=== PATIENT | female | born 1970 | race Caucasian/White ===

== ENCOUNTER → 2019-11-19 12:47 | Outpatient (CLI) | payer OTHER, SELFPAY ==
--- NOTE | ~2019-11-19 | MM_ITS ---
EXAMINATION: MM screening [facility] BI w aguila HISTORY: Screening TECHNIQUE: Craniocaudal and mediolateral oblique 3-D tomosynthesis images were obtained and synthetic 2-D images were generated. CAD analysis was submitted and interpreted. COMPARISON: Comparison to multiple prior studies sequentially, with oldest reviewed study dated 11/13. BREAST PARENCHYMAL COMPOSITION: Breast composed of scattered areas of fibroglandular density. FINDINGS: There is no evidence of suspicious mass, calcification, or architectural distortion to sugg est malignancy in either breast. There has been no suspicious interval change. IMPRESSION: 1. No mammographic evidence of malignancy. 2. Recommend routine screening mammography in one year. BI-RADS CATEGORY 1 - NEGATIVE Reviewed, dictated and finalized at location A.
== END ==
PROVIDERS: Visit Provider Nurse Practitioner
DX: Z12.31 Encounter for screening mammogram for malignant neoplasm of breast (principal)
CPT/HCPCS: 77063; 77067

== ENCOUNTER 2020-06-17 08:34 | Emergency (ER) | payer OTHER, SELFPAY ==
[2020-06-17 08:41] VITALS: BP 122/80; PULSE 80; RESP 16; TEMP 36.6; O2SAT 99
--- NOTE | 2020-06-17 08:47 | ED.SKABFB ---
HPI - Skin/Abscess/Foreign Bdy General Chief complaint: Skin/Abscess/Foreign Body Stated complaint: rash Time Seen by Provider: 06/17/20 08:40 Source: patient and RN notes reviewed Mode of arrival: ambulatory Limitations: no limitations History of Present Illness HPI narrative: 49-year-old female presents to the [facility] with complaints of a rash to her face arms that started 2 days ago, Monday. Patient denies any new creams, lotions, ointments or detergents. No new foods. Has been applying calamine lotion with little relief. No chest pain or shortness of breath. Denies any swelling of the lips or tongue. No abdominal pain, nausea, vomiting or diarrhea. Denies any fevers. Denies any significant past medical history Related Data Home Medications Medication Instructions Recorded Confirmed norethindrone-e.estradiol-iron 1 tablet PO DAILY 06/17/20 06/17/20 [ (28)] Allergies Allergy/AdvReac Type Severity Reaction Status Date / Time No Known Allergies Allergy Verified 06/17/20 08:45 Review of Systems Review of Systems: Narrative: CONSTITUTIONAL: Denies fever, chills, or sweats. EYES: Denies visual changes, redness, or discharge. ENT: Denies rhinorrhea, congestion, sore throat, or otalgia. Denies inflammation CARDIOVASCULAR: Denies chest pain, palpitations, or edema. RESPIRATORY: Denies cough or dyspnea. GASTROINTESTINAL: Denies abdominal pain, nausea, vomiting, or diarrhea. SKIN: Reports rash with itching to bilateral arms face and neck. All other systems reviewed are negative, except as documented in HPI. [facility] Surgical History Surgical History (Updated 06/17/20 @ 09:02 by Concepción Cole) Previous section Family History Family History Father No family history of cardiovascular disease Patient's father is in good health Mother Patient's mother is in good health Social History Social History (Updated 12/11/19 @ 10:50 by Troy Lagos CMA) Smoking packs per day: 0.25 Smoking cigarettes per day: 5.0 Years smoked: 10 Smoking pack-years: 2.50 Smoking status: Light tobacco smoker Second hand tobacco smoke exposure: No Smoking end date: 08/30/94 Alcohol intake: never Substance use: never Substance use type: does not use Comments At the time of my signature, I reviewed and agree with the nursing past medical, surgical, social, and family history. There is no relevant family history pertinent to the patient complaint. Exam Narrative: Exam Narrative: GENERAL: This is a well-nourished, well-developed patient, in no apparent distress. HEAD: normocephalic, atraumatic. EYES: PERRL. Sclera clear/white. Vision is grossly intact. EARS: External ears red without swelling, Hives NOSE: External nose left nare small raised red area. no obvious nasal discharge, nares without redness, no rhinorrhea. THROAT: Mucous membranes moist, posterior pharynx clear. No tongue or throat swelling NECK: Neck supple, non-tender without lymphadenopathy, masses or thyromegaly. CARDIOVASCULAR: Regular rate and rhythm without murmurs, gallops, or rubs. RESPIRATORY: Clear to auscultation. Breath sounds equal bilaterally. No wheezes, rales, or rhonchi. SKIN: warm, Dry, intact with hives to bilateral arms, neck and face (exposed areas only). good texture and turgor. NEURO: awake, alert, and oriented to person, place and time. There were no obvious focal neurologic abnormalities. EXTREMITIES: No joint tenderness, effusion, or edema noted BACK: Nontender without deformity. Course Vital Signs Vital signs: Vital Signs Temperature 97.9 F 06/17/20 08:41 Pulse Rate 80 06/17/20 08:41 Respiratory Rate 16 06/17/20 08:41 Blood Pressure 122/80 06/17/20 08:41 Pulse Oximetry 99 06/17/20 08:41 Temperature 97.9 F 06/17/20 08:41 Pulse Rate 80 06/17/20 08:41 Respiratory Rate 16 06/17/20 08:41 Blood Pressure 122/8
== END 2020-06-17 09:00 | disposition home or self-care (01) ==
PROVIDERS: Emergency Provider Nurse Practitioner; PCP Internal Medicine
DX: L25.9 Unspecified contact dermatitis, unspecified cause (principal); F17.210 Nicotine dependence, cigarettes, uncomplicated
CPT/HCPCS: 99213; G0463

== ENCOUNTER → 2020-12-16 13:25 | Outpatient (CLI) | payer OTHER, SELFPAY ==
--- NOTE | ~2020-12-16 | MM_ITS ---
EXAMINATION: MM screening [facility] BI w aguila HISTORY: Screening TECHNIQUE: Craniocaudal and mediolateral oblique 3-D tomosynthesis images were obtained and synthetic 2-D images were generated. CAD analysis was submitted and interpreted. COMPARISON: Comparison to multiple prior studies sequentially, with oldest reviewed study dated 09/27. BREAST PARENCHYMAL COMPOSITION: There are scattered areas of fibroglandular density. FINDINGS: There is no evidence of suspicious mass, calcification, or architectural distortion to sugg est malignancy in either breast. There has been no suspicious interval change. IMPRESSION: 1. No mammographic evidence of malignancy. 2. Recommend routine screening mammography in one year. BI-RADS Category 1: Negative Reviewed, dictated and finalized at location A.
== END ==
PROVIDERS: Visit Provider Nurse Practitioner
DX: Z12.31 Encounter for screening mammogram for malignant neoplasm of breast (principal)
CPT/HCPCS: 77063; 77067

== ENCOUNTER 2021-01-26 00:08 | Day surgery (SDC) | payer OTHER, SELFPAY ==
[2020-12-31 14:54] VITALS: BMI 27.0
--- NOTE | 2021-01-18 16:14 | PC.NURSE ---
PT CALLED IN TO SAY SHE STARTED HAVING RE-SPLOTCHES AND BUMPS ALL OVER TORSO, BACK AND CHEST WITH ITCHING APPROX. 15-20 MINUTES AFTER STARTING MIRALAX PREP. I CALLED DR. CORNELIUS AND NOTIFIED HIM, OKAY TO ORDER SUPREP AND PT OKAY TO TAKE BENADRYL FOR ITCHING. PTS PHARMACY IS [facility] IN [place], PHARMACY CALLED AND INSURANCE ONLY COVERS OTHER PEG TYPE PREP, SUPREP WILL BE APPROX $135, PT IS OKAY WITH THIS, RX PUT THROUGH TO PHARMACY. PT ALSO INSTRUCTED TO CONFIRM WITH PHARMACY THAT SHE SHOULD BE OKAY TO DRINK MAG. CITRATE ALSO WITHOUT REACTION. PT VERBALIZES UNDERSTANDING.
[2021-01-26 06:26] VITALS: BP 117/77; PULSE 82; RESP 16; TEMP 37; O2SAT 100
[2021-01-26] MEDS: LACTATED RINGERS 1,000 ML 150 ML IV CONT (06:29)
[2021-01-26 07:11] LABS: Beta HCG Quantitative < 2.39 mIU/ML
--- NOTE | 2021-01-26 07:17 | P.PNAN_ITS ---
Anes - Initial Pre Proc Eval Procedure: Operation Date: 01/26/21 07:30 Proposed Procedures p Screening Colonoscopy - Yong Walter MD Date/Time: 01/26/21 07:17 Surgeon: Yong Walter MD Pre Op Diagnosis: neoplasm screening Patient Data Age: 50 Gender: F Height: 1.78 m Weight: 85.4 kg Last Vital Signs Temp 98.6 F 01/26/21 06:26 Pulse 82 01/26/21 06:26 Resp 16 01/26/21 06:26 BP 117/77 01/26/21 06:26 Pulse Ox 100 01/26/21 06:26 Allergies Allergy/AdvReac Type Severity Reaction Status Date / Time polyethylene glycol 3350 Allergy Intermediate Hives Verified 01/26/21 06:24 [From Miralax] Home Medications Medication Instructions Recorded Confirmed Type norethindrone-e.estradiol-iron 1 tablet PO DAILY 06/17/20 01/26/21 History [ ()] cholecalciferol (vitamin D3) 25 25 mcg PO DAILY 12/08/20 01/26/21 History mcg (1,000 unit) chewable tablet Laboratory Tests 01/26/21 06:40 Beta HCG, Quant < 2.39 mIU/ML mIU/ML Patient hx anesthesia problems: none Family hx anesthesia problems: none Results Review: All pre-operative results and documents have been reviewed as part of the pre-operative evaluation. [facility] Surgical History Surgical History Previous section Family History Family History Father No family history of cardiovascular disease Patient's father is in good health Mother Patient's mother is in good health Social History Social History Smoking packs per day: 0.25 Smoking cigarettes per day: 5.0 Years smoked: 10 Smoking pack-years: 2.50 Smoking status: Never smoker Second hand tobacco smoke exposure: No Smoking end date: 08/30/94 Alcohol intake: former Substance use: never Substance use type: does not use Living arrangements: with family Spiritual care concerns: No Anes - Eval Final PreProcedure Day of Procedure 01/26/21 07:17 Patient weight: normal Heart: regular rate and rhythm Lungs: clear to auscultation Airway: Mallampati scale class II Neurological: alert and oriented Last oral intake: >/= 8 hours ASA classification: II Emergent: no Anesthetic plan: proceed Anesthesia type and monitoring: general GIVS and standard monitoring Results Review: All pre-operative results and documents have been reviewed as part of the pre-operative evaluation. Informed Consent: The patient's anesthetic plan and its attendant risks and benefits were discussed with the patient/family/POA. Questions were solicited and answers provided to the satisfaction of the patient/family/POA.
--- NOTE | 2021-01-26 07:24 | PM.HPGS ---
History of Present Illness History of Present Illness Consent: Risks, benefits, and alternatives have been discussed and questions answered. Patient agrees to proceed with procedure. Chief complaint: neoplasm screening Narrative: Julia Jones is a 50 year old female here for first screening colonoscopy Review of Systems Constitutional: Constitutional: Denies headache(s) and Denies weakness Eyes: Eyes: Denies blurry vision ENT: Reports Normal hearing present, Denies headache(s) and Denies neck pain Cardiovascular: Cardiovascular: Denies chest pain and Denies dyspnea Respiratory: Respiratory: Denies dyspnea Gastrointestinal: Gastrointestinal: Reports no additional gastrointestinal complaints Genitourinary: Genitourinary: Denies dysuria Musculoskeletal: Musculoskeletal: Denies neck pain Integumentary/Breasts: Skin/Breast: Denies dry skin Neurologic: Reports Normal hearing present, Denies headache(s) and Denies weakness Psychiatric: Psychiatric: Denies anxiety Endocrine: Endocrine: Denies change in body appearance Hematologic/Lymphatic: Hematologic/Lymphatic: Denies easy bleeding Allergic/Immunologic: Allergic/Immunologic: Denies urticaria PMF Past Medical History Medical History (Updated 01/26/21 @ 07:25 by Yong Walter MD) Colon cancer screening Surgical History Surgical History Previous section Family History Family History Father No family history of cardiovascular disease Patient's father is in good health Mother Patient's mother is in good health Social History Social History Smoking packs per day: 0.25 Smoking cigarettes per day: 5.0 Years smoked: 10 Smoking pack-years: 2.50 Smoking status: Never smoker Second hand tobacco smoke exposure: No Smoking end date: 08/30/94 Alcohol intake: former Substance use: never Substance use type: does not use Living arrangements: with family Spiritual care concerns: No Meds Home Medications and Allergies Home Medications Medication Instructions Recorded Confirmed Type norethindrone-e.estradiol-iron 1 tablet PO DAILY 06/17/20 01/26/21 History [ ()] cholecalciferol (vitamin D3) 25 25 mcg PO DAILY 12/08/20 01/26/21 History mcg (1,000 unit) chewable tablet Allergies Allergy/AdvReac Type Severity Reaction Status Date / Time polyethylene glycol 3350 Allergy Intermediate Hives Verified 01/26/21 06:24 [From Miralax] Vital Signs Vital Signs - 24 hr 01/26/21 06:26 Temperature 98.6 F Pulse Rate 82 Respiratory Rate 16 Blood Pressure 117/77 Pulse Oximetry 100 Exam Const: General: comfortable and no acute distress HENMT: General nose exam: Normal nares present Eyes: General: appearance normal, both eyes and all related structures Neck: Neck: no JVD Resp: Auscultation: clear to auscultation bilaterally Cardio: Rate: regular rate Rhythm: regular rhythm GI: Inspection: non-distended GI Palp: Yes Soft to palpation Skin: General skin exam: normal color Neuro: General: gait normal Speech: normal speech Extrem: General: normal to inspection Psych: Mental Status: mental status grossly normal Assessment and Plan Assessment and plan (1) Colon cancer screening: Code(s): Z12.11 - Encounter for screening for malignant neoplasm of colon Status: Acute Assessment and Plan: colonoscopy
[2021-01-26 07:44] VITALS: BP 134/107; PULSE 98; RESP 15; O2SAT 100
[2021-01-26 07:54] VITALS: BP 95/64; PULSE 75; RESP 18; O2SAT 100
[2021-01-26 08:04] VITALS: BP 111/74; PULSE 78; RESP 18; O2SAT 100
== END 2021-01-26 08:11 | disposition home or self-care (01) ==
PROVIDERS: Anesthesiology; PCP Internal Medicine; Referring Provider Obstetrics & Gynecology; Visit Provider Internal Medicine Gastroenterology
PROC: 0DJD8ZZ Inspection of Lower Intestinal Tract, Via Natural or Artificial Opening Endoscopic (ICD-10-PCS; CPT 45378; principal; 2021-01-26 07:30)
DX: Z12.11 Encounter for screening for malignant neoplasm of colon (principal); K64.8 Other hemorrhoids
CPT/HCPCS: 45378; 36415; 84702; J2704; J7120

== ENCOUNTER → 2022-03-05 08:48 | Outpatient (CLI) | payer OTHER, SELFPAY ==
--- NOTE | ~2022-03-05 | MM_ITS ---
EXAMINATION: MM screening [facility] BI w aguila HISTORY: Screening mammogram TECHNIQUE: Craniocaudal and mediolateral oblique 3-D tomosynthesis images were obtained and synthetic 2-D images were generated. CAD analysis was submitted and interpreted. COMPARISON: 12/16/2020, 11/19/2019, 03/04/2018, 02/18/2017 bilateral screening mammogram examinations BREAST PARENCHYMAL COMPOSITION: There are scattered areas of fibroglandular density. FINDINGS: Stable fibroglandular asymmetry since 02/18/2017. There is no evidence of suspicious mass, ca lcification, or architectural distortion to suggest malignancy in either breast. There has been no berrios spicious interval change. IMPRESSION: 1. No mammographic evidence of malignancy. 2. Recommend routine screening mammography in one year. BI-RADS Category 2: Benign finding(s). Reviewed, dictated and finalized at location A. [employer]
== END ==
PROVIDERS: PCP Family Medicine; Visit Provider Obstetrics & Gynecology Gynecology
DX: Z12.31 Encounter for screening mammogram for malignant neoplasm of breast (principal)
CPT/HCPCS: 77063; 77067

== ENCOUNTER 2023-04-24 10:56 | Outpatient (CLI) | payer OTHER, SELFPAY ==
--- NOTE | ~2023-04-24 | DEXA_ITS ---
Bone Density Report Name: BOAZ MCLEAN Age: 52 Sex: Female Ethnicity: White Date of : 1970 Indication: postmenopausal; screening for osteoporosis; height loss; Referring Provider: Jenny, Jammie Study: Bone densitometry was performed. Exam Date: April 24, 2023 Accession number: [id number] Bone Density: Region BMD T-score Z-score Classification AP Spine (L1-L4) 1.189 1.3 2.2 Normal Femoral Neck (Left) 0.879 0.3 1.2 Normal Total Hip (Left) 1.023 0.7 1.2 Normal Femoral Neck (Right) 0.817 -0.3 0.6 Normal Total Hip (Right) 0.976 0.3 0.8 Normal Total Hip Mean 1.000 0.5 1.0 Normal World Health Organization criteria for BMD impression classify patients as: Normal (T-score at or above -1.0), Osteopenia (T-score between -1.0 and -2.5), or Osteoporosis (T-score at or below -2.5). 10-year Fracture Risk: FRAX not reported because: All T-scores for Spine Total, Hip Total, Femoral Neck at or above -1.0 Clinical Information Provided by Patient: Has used the following medications: Vitamin D Patient maximum height was 70 Menopause Age: 50 Drinks caffeinated beverages Onset of menses at age 14 Number of children 1 Impression: The patient has normal bone mass. Discussion: BONE DENSITY IS ABOVE THE MINIMUM DESIRABLE LEVEL AT ALL SKELETAL SITES TESTED. This patient?s bone mineral density is above the minimum desirable level (T-score -1.0 or better) at all sites measured. The patient should follow a healthful lifestyle (good nutrition with adequate calcium and vitamin D, and appropriate weight-bearing exercise). Follow-Up: Consider repeating this study in 5 years or sooner if there is some new clinical indication. Reported by: LUCRETIA on 04/24/2023 11:21:00 AM. Reviewed, dictated and finalized at location A. [facility]
--- NOTE | ~2023-04-24 | MM_ITS ---
EXAMINATION: MM screening [facility] BI w aguila HISTORY: Screening mammogram TECHNIQUE: Craniocaudal and mediolateral oblique 3-D tomosynthesis images were obtained and synthetic 2-D images were generated. CAD analysis was submitted and interpreted. COMPARISON: 03/05/2022, 12/16/2020 bilateral screening mammogram examination BREAST PARENCHYMAL COMPOSITION: There are scattered areas of fibroglandular density. FINDINGS: Stable mild fibroglandular asymmetry is again noted. There is no evidence of suspicious mas s, calcification, or architectural distortion to suggest malignancy in either breast. There has been no suspicious interval change. IMPRESSION: 1. No mammographic evidence of malignancy. 2. Recommend routine screening mammography in one year. BI-RADS Category 2: Benign finding(s). Reviewed, dictated and finalized at location A.
== END 2023-04-24 10:57 ==
PROVIDERS: PCP Family Medicine; Visit Provider Nurse Practitioner
DX: Z12.31 Encounter for screening mammogram for malignant neoplasm of breast (principal); Z78.0 Asymptomatic menopausal state; Z13.820 Encounter for screening for osteoporosis
CPT/HCPCS: 77063; 77067; 77080

== ENCOUNTER 2023-04-25 08:06 | Outpatient (CLI) | payer OTHER, SELFPAY ==
--- NOTE | ~2023-04-25 | US_ITS ---
EXAMINATION: US abdomen limited DATE: 04/25/2023 08:35 INDICATION: Abnormal findings of blood chemistry TECHNIQUE: Multiple grayscale and Doppler ultrasound images of the abdomen were obtained. COMPARISON: None FINDINGS: Abdominal aorta is normal in caliber. The visualized proximal to mid inferior vena cava is normal. Th e pancreatic head and body are normal in appearance. The pancreatic tail is not visualized. Liver stevenson s normal echogenicity and contour, with a smooth surface. No liver lesion identified. No intrahepatic biliary duct dilation suspected. Portal venous flow was seen in the hepatopetal, normal direction an d has normal Doppler waveform. The gallbladder is normal in appearance. There is no cholelithiasis. The common bile duct measures 5 mm, which is normal. Sonographic Swain sign was reported as negative by the director of neurology.Right kidney measures 9.3 cm in length with normal contour and echogenicity and n o hydronephrosis. IMPRESSION: 1. Normal right upper quadrant ultrasound. Reviewed, dictated and finalized at location L.
== END 2023-04-25 08:07 ==
LOC: MICIMG 08:07
PROVIDERS: PCP Family Medicine; Visit Provider Physician Assistant Medical
DX: R79.89 Other specified abnormal findings of blood chemistry (principal)
CPT/HCPCS: 76705

== ENCOUNTER 2023-09-18 09:46 | Outpatient (CLI) | payer OTHER, SELFPAY | END 2023-09-18 09:47 | disposition home or self-care (01) | LOC: ANHAUDIO 09:47 | PROVIDERS: PCP Family Medicine; Visit Provider Otolaryngology | DX: H90.6 Mixed conductive and sensorineural hearing loss, bilateral (principal); H93.11 Tinnitus, right ear | CPT/HCPCS: 92557; 92567 ==

== ENCOUNTER 2024-04-12 15:33 | Outpatient (CLI) | payer OTHER, SELFPAY | END 2024-04-12 15:34 | disposition home or self-care (01) | LOC: MICIMG 15:34 | PROVIDERS: PCP Family Medicine; Visit Provider Student in an Organized Health Care Education/Training Program | DX: M54.50 Low back pain, unspecified (principal); M25.551 Pain in right hip; G89.29 Other chronic pain | CPT/HCPCS: 72100; 73502 ==

== ENCOUNTER 2024-09-03 15:46 | Outpatient (CLI) | payer OTHER, SELFPAY ==
--- NOTE | ~2024-09-03 | US_ITS ---
US thyroid INDICATION: Disorder of thyroid gland. TECHNIQUE: Real-time sonographic images of the thyroid gland were obtained. COMPARISON: No prior studies for comparison. FINDINGS: The right thyroid lobe measures 5.3 x 1.6 x 1.7 cm. The left thyroid lobe measures 4.8 x 2 x 2 cm. Thyroid gland is heterogeneous. In the left lobe there is a complex mixed solid and cystic m ass measuring 2.2 x 1.1 x 1.7 cm with internal vascularity, wider than tall, smoothly marginated, TR 3. In the right lobe there is solid hypoechoic wider than tall mass measuring 8 x 8 x 7 mm with priya nal vascularity. Margins are smooth without echogenic foci, TR 4. Normal vascular flow is present. IMPRESSION: 1. Bilateral thyroid masses, largest dominant mass likely benign, TR 3 measuring 2.2 cm in the left lobe. Recommend follow-up ultrasound in 12 months. Reviewed, dictated and finalized at location A. IMPRESSION: 1. Bilateral thyroid masses, largest dominant mass likely benign, TR 3 measuri ng 2.2 cm in the left lobe. Recommend follow-up ultrasound in 12 months.
== END 2024-09-03 15:47 | disposition home or self-care (01) ==
PROVIDERS: PCP Nurse Practitioner; Visit Provider Nurse Practitioner
DX: E07.9 Disorder of thyroid, unspecified (principal)
CPT/HCPCS: 76536

== ENCOUNTER 2024-09-13 15:33 | Outpatient (CLI) | payer OTHER, SELFPAY ==
--- NOTE | ~2024-09-13 | MM_ITS ---
EXAMINATION: MM screening [facility] BI w aguila HISTORY: Screening TECHNIQUE: Craniocaudal and mediolateral oblique 3-D tomosynthesis images were obtained and synthetic 2-D images were generated. CAD analysis was submitted and interpreted. COMPARISON: Comparison to multiple prior studies sequentially, with oldest reviewed study dated 07/2017. BREAST PARENCHYMAL COMPOSITION: Not dense: There are scattered areas of fibroglandular density. FINDINGS: There is no evidence of suspicious mass, calcification, or architectural distortion to sugg est malignancy in either breast. There has been no suspicious interval change. IMPRESSION: 1. No mammographic evidence of malignancy. 2. Recommend routine screening mammography in one year. BI-RADS Category 1: Negative Reviewed, dictated and finalized at location B.
== END 2024-09-13 15:34 | disposition home or self-care (01) ==
LOC: MICIMG 15:33
PROVIDERS: PCP Nurse Practitioner; Visit Provider Student in an Organized Health Care Education/Training Program
DX: Z12.31 Encounter for screening mammogram for malignant neoplasm of breast (principal)
CPT/HCPCS: 77063; 77067